=== PATIENT | female | born 1960 | race Caucasian/White ===

== ENCOUNTER 2018-01-11 12:10 | Emergency (ER) | payer BC ==
[2018-01-11 12:33] VITALS: BP 119/67
--- NOTE | 2018-01-11 12:52 | UC ---
Skin Complaint HPI - HPI Summary HPI Summary: pt is c/o a rash for 2 weeks. it began around her mouth with dry skin. it has turned red and now covers her face and front of her neck. she started aleve and a mm relaxor around time of onset but rash continues despite stopping those medications. pt has stopped her routine skin products and started an otc Alveno skin calming product which is soothing but the rash is not resolving. the rash does itch and burn. no fever, chills, cough or sob. she admits to mild runny nose. she has no joint pain of other rash. - History of Current Complaint Chief Complaint: UCSkin Time Seen by Provider: 01/11/18 12:34 Stated Complaint: ALLERGIC REACTION Hx Obtained From: Patient ?: No Onset/Duration: Gradual Onset Timing: Constant Pain Intensity: 3 Character: Pruritus, Redness Aggravating Factor(s): Nothing Associated Signs & Symptoms: Positive: Rash Related History: Recent change in medication - Allergy/Home Medications Allergies/Adverse Reactions: Allergies Allergy/AdvReac Type Severity Reaction Status Date / Time Sulfa (Sulfonamide Allergy Rash Verified 01/11/18 12:29 Antibiotics) Home Medications: Home Medications Multivitamin/Iron/Folic Acid [Centrum Women Tablet] 1 each PO DAILY 01/11/18 [ History Confirmed 01/11/18] tiZANidine TAB* [Zanaflex TAB*] 2 mg PO BEDTIME 01/11/18 [History Confirmed 02/25] Review of Systems Constitutional: Negative Skin: Rash Eyes: Negative ENT: Negative Respiratory: Negative Cardiovascular: Negative Gastrointestinal: Negative Genitourinary: Negative Motor: Negative Neurovascular: Negative Musculoskeletal: Negative Neurological: Negative Psychological: Negative Is Patient Immunocompromised?: No All Other Systems Reviewed And Are Negative: Yes PMH/Surg Hx/FS Hx/Imm Hx - Additional Past Medical History Additional PMH: essential tremor, back pain - Surgical History Surgical History: Yes Surgery Procedure, Year, and Place: WISDOM TEETH REMOVAL;. GALLBLADDER 04/2014; - Social History Lives: With Family Alcohol Use: Rare Substance Use Type: None Smoking Status (MU): Never Smoked Tobacco - Immunization History Most Recent Influenza Vaccination: FALL 2013 Vaccination Up to Date: Yes Physical Exam Triage Information Reviewed: Yes Appearance: Well-Appearing Vital Signs: Initial Vital Signs Temp 98.5 F 01/11/18 12:24 Pulse 81 01/11/18 12:24 Resp 16 01/11/18 12:24 BP 119/67 01/11/18 12:24 Pulse Ox 100 01/11/18 12:24 Vital Signs Reviewed: Yes Eyes: Positive: Conjunctiva Clear ENT: Positive: Pharynx normal, TMs normal, Other - no auricular adenopathy. Negative: Nasal congestion, Nasal drainage Neck: Positive: Supple, Nontender, No Lymphadenopathy Respiratory: Positive: Lungs clear, Normal breath sounds, No respiratory distress Cardiovascular: Positive: RRR, No Murmur Abdomen Description: Positive: Nontender, No Organomegaly, Soft Bowel Sounds: Positive: Present Musculoskeletal: Positive: No Edema Neurological: Positive: Alert Psychological: Positive: Age Appropriate Behavior Skin Exam: Normal Skin: Positive: rashes - face has diffuse mild erythema that extends to anterior neck. it is macular to slightly raised around the mouth. there is some fine scale below L side of mouth and both temples. no blistering, weeping and not petechial or tender. it does jesusita. Course/Dx - Course Course Of Treatment: the rash does not look bacterial and is not typical of a fungal rash. pt denies any correlation between pattern of rash and topicals she has applied. i think not likely related to her nsaid and mm relaxor. pt is c/o burn/itch. will d/c all prior cosmetics, soaps and otc lotion. 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 pt agrees to f/u sooner for changes or worsening. - Diagnoses Provider Diagnoses: Dermatitis to face and anterior neck Discharge - Discharge Plan Condition: Stable Disposition: HOME Prescriptions: predniSONE TAB* [Deltasone TAB*] 40 mg PO DAILY 3 Days #6 tab Patient Education Materials: Acute Rash (ED) Referrals: Inderjit Tomas MD [Primary Care Provider] - As Soon As Possible Shasta Noyola [Medical Doctor] - 3 Days
== END 2018-01-11 13:08 | disposition home or self-care (01) ==
LOC: UCCORT 12:10
DX: L30.9 Dermatitis, unspecified (principal); Z88.1 Allergy status to other antibiotic agents
CPT/HCPCS: 99212; G0463

== ENCOUNTER 2018-06-27 10:40 | Emergency (ER) | payer BC ==
[2018-06-27 11:09] VITALS: BP 118/52
--- NOTE | 2018-06-27 11:16 | UC ---
Skin Complaint HPI - HPI Summary HPI Summary: 57 y/o female presents to the urgent care c/o RT wrist red rash w/ swelling s/p insect bite since 06/25/2018. Pt reports she went to [facility] on and was out in a park and something bit her. She has applied hydrocortisone topical cream w/o any improvement. Now a red rash developed iaround insect bite w/ swelling. Pain at touch is 2/10 and it is war to touch. Pt can move wrist w/o any difficulty. Pt denies fever, SOB, numbness or tingling sensation, WOLFE, joint pain, abdominal pain, N/V/D. - History of Current Complaint Chief Complaint: UCSkin Time Seen by Provider: 06/27/18 11:15 Stated Complaint: RIGHT FOREARM INSECT BITE Hx Obtained From: Patient ?: No - Menopausal Onset/Duration: Sudden Onset, Lasting Days - 3 days, Still Present, Worse Since - today Skin Exposure Onset/Duration: Days Ago - 3 days Timing: Constant Onset Severity: Mild Current Severity: Mild Pain Intensity: 3 Pain Scale Used: 0-10 Numeric Location: Discrete - RT wrist, Hand (Right) - RT ventral side of wrist Character: Swelling, Pruritus, Redness Aggravating Factor(s): Touch Alleviating Factor(s): OTC Meds, Antihistamines Associated Signs & Symptoms: Positive: Rash, Tenderness. Negative: Nausea, Vomiting, Numbness, Fever, Chills, Drainage Related History: Possible Reaction to: Insect - Allergy/Home Medications Allergies/Adverse Reactions: Allergies Allergy/AdvReac Type Severity Reaction Status Date / Time Sulfa (Sulfonamide Allergy Rash Verified 06/27/18 10:58 Antibiotics) Home Medications: Home Medications Cholecalciferol TAB* [Vitamin D TAB*] 2,000 units PO DAILY 06/27/18 [History Confirmed 06/27/18] diPHENhydraMINE 2% CREAM(NF) [Benadryl 2% CREAM (NF)] 1 applic TOPICAL TID PRN 06/27/18 [History Confirmed 06/27/18] Review of Systems Constitutional: Negative Skin: Rash - RT wrist red rash s/p insect bite Eyes: Negative ENT: Negative Respiratory: Negative Cardiovascular: Negative Gastrointestinal: Negative Genitourinary: Negative Motor: Negative Neurovascular: Negative Musculoskeletal: Negative Neurological: Negative Psychological: Negative Is Patient Immunocompromised?: No All Other Systems Reviewed And Are Negative: Yes PMH/Surg Hx/FS Hx/Imm Hx Previously Healthy: Yes Other Neurological History: essesntial tremors of RT hand - Surgical History Surgical History: Yes Surgery Procedure, Year, and Place: WISDOM TEETH REMOVAL;. GALLBLADDER 04/2014; - Family History Known Family History: Positive: Diabetes Family History: Lung cancer - Social History Occupation: Employed Full-time Lives: With Family Alcohol Use: Rare Substance Use Type: None Smoking Status (MU): Never Smoked Tobacco - Immunization History Most Recent Influenza Vaccination: FALL 2013 Vaccination Up to Date: Yes Physical Exam - Summary Physical Exam Summary: Vital Signs Reviewed: Yes General: well developed, well nourished female sitting in the examining table w/ o any apparent distress. Eyes: Positive: Conjunctiva Clear - PERRLA, EOMI ENT: Positive: Normal ENT inspection, Hearing grossly normal, Pharynx normal, TMs normal Neck: Positive: Supple, Nontender, No Lymphadenopathy Respiratory: Positive: Chest nontender, Lungs clear, Normal breath sounds Cardiovascular: Positive: RRR, No Murmur, Pulses Normal Abdomen Description: Positive: Nontender, No Organomegaly, Soft. Negative: CVA Tenderness (R), CVA Tenderness (L) Bowel Sounds: Positive: Present Musculoskeletal: Positive: Strength Intact, ROM Intact, No Edema Neurological Exam: Normal Psychological Exam: Normal Skin: Positive: rashes - RT ventral side of Rt wrist w/ erythematous patch w/ indistinct borders, warm to touch, swelling and tender to palpation, about 4.0cm x 3.0cm in size. FROM of RT wrist, sensation intact, capillary refill brisk, pulses WNL. Triage Information Reviewed: Yes Vital Signs: Initial Vital Signs Temp 97.8 F 06/27/18 11:02 Pulse 75 06/27/18 11:02 Resp 14 06/27/18 11:02 BP 118/52 06/27/18 11:02 Pulse Ox 100 06/27/18 11:02 Course/Dx - Course Course Of Treatment: 57 y/o female presents to the urgent care c/o RT wrist red rash w/ swelling s/p insect bite since 06/25/2018. Pt reports she went to [facility] on and was out in a park and something bit her. She has applied hydrocortisone topical cream w/o any improvement. Now a red rash developed iaround insect bite w/ swelling. Pain at touch is 2/10 and it is war to touch. Pt can move wrist w/o any difficulty. Pt denies fever, SOB, numbness or tingling sensation, WOLFE, joint pain, abdominal pain, N/V/D. Hx obtained. Pt with cellulitis of the RT wrist s/p bee sting. Pt Rx Keflex PO, Bacitracin oint. Rash demarcated with a skin marker and If redness and swelling doubles in size beyond what was demarcated after 48 hrs of taking antibiotic and fever develops Pt advised to go to the ER immediately. Pt understood and agreed with D /C instructions. - Differential Diagnoses - Skin Complaint Differential Diagnoses: Abscess, Cellulitis, Contact Dermatitis, Local Allergic Reaction, MRSA, Tick Born Illness, Tinea, Urticaria - Diagnoses Provider Diagnoses: 1- RT wrist cellulitis s/p insect bite Discharge - Sign-Out/Discharge Documenting (check all that apply): Patient Departure - D/C home - Discharge Plan Condition: Stable Disposition: HOME Prescriptions: Bacitracin OINTMENT* 1 applic TOPICAL BID #1 tube Cephalexin CAP* [Keflex CAP*] 500 mg PO TID #21 cap Patient Education Materials: Cellulitis (ED) Referrals: Inderjit Tomas MD [Primary Care Provider] - 3 Days Additional Instructions: 1-Please take full course of Antibiotic. 2- If redness and swelling doubles in size after 48 hrs of taking antibiotic and fever develops please go to the ER immediately. 3-Avoid too much flexion of your wrist or heavy lifting. 4- Apply Bacitracin oint, as directed around insect bite 5-Please F/u with your PCP in 3-4 days if not improvement of symptoms for further evaluation and treatment. - Billing Disposition and Condition Condition: STABLE Disposition: Home
== END 2018-06-27 11:48 | disposition home or self-care (01) ==
LOC: UCCORT 10:40
DX: S60.861A Insect bite (nonvenomous) of right wrist, initial encounter (principal); W57.XXXA Bitten or stung by nonvenomous insect and other nonvenomous arthropods, initial encounter; Y93.9 Activity, unspecified; Y92.9 Unspecified place or not applicable; Z88.1 Allergy status to other antibiotic agents
CPT/HCPCS: 99212; G0463